=== PATIENT | male | born 1990 | race Caucasian/White ===

== ENCOUNTER 2022-02-09 22:04 | Emergency (ER) | payer OTHER ==
[~2022-02-09] VITALS: Ht 185.4 cm; Wt 109.0 kg
[2022-02-09] MEDS ORDERED: IBUPROFEN 600MG TABLET PO STA (22:53)
[2022-02-09 23:30] VITALS: BP 129/79
== END 2022-02-09 23:38 | disposition home or self-care (01) ==
LOC: ER 22:04
DX: R07.89 Other chest pain (principal); Z90.49 Acquired absence of other specified parts of digestive tract
CPT/HCPCS: 71045; 93005; 99283